=== PATIENT | female | born 1950 | race Caucasian/White ===

== ENCOUNTER → 2022-06-16 | Outpatient (CLI) | payer MEDICARE, OTHER ==
--- NOTE | 2022-06-16 09:47 | Diagnostic Imaging Report ---
PROCEDURE: US Thyroid. TECHNIQUE: Multiple real-time grayscale images were obtained of the thyroid in various projections. INDICATION: Abnormal thyroid labs COMPARISON: None available. FINDINGS: The right lobe of thyroid gland is small in size measuring 2.8 x 0.7 x 0.8 cm. The left lobe of the thyroid gland is small in size measuring 3.2 x 0.9 x 0.9 cm. The thyroid gland maintains a homogeneous echotexture without discrete thyroid nodule. IMPRESSION: The thyroid gland is diffusely small in size without discrete thyroid nodule. Dictated by: Dictated on workstation # [id number]
== END ==
LOC: RAD 08:24
PROVIDERS: ATTEND Family Medicine
DX: E05.90 Thyrotoxicosis, unspecified without thyrotoxic crisis or storm (principal); E04.1 Nontoxic single thyroid nodule
CPT/HCPCS: 76536